=== PATIENT | female | born 1960 | race Caucasian/White ===

== ENCOUNTER 2016-12-03 14:41 | Emergency (ER) | payer OTHER ==
[2016-12-03 16:07] LABS: HEMOGLOBIN 12.8 gm/dl (12.3-15.3); RED BLOOD COUNT 4.45 M/UL (4.00-5.10); WHITE BLOOD COUNT 7.3 K/UL (4.5-11.0)
== END 2016-12-03 19:42 | disposition home or self-care (01) ==
LOC: ER1 14:41
PROVIDERS: Physician Assistant
DX: R10.9 Unspecified abdominal pain (principal); M54.5 Low back pain; G89.29 Other chronic pain; Z88.8 Allergy status to other drugs, medicaments and biological substances
CPT/HCPCS: 36415; 80053; 81001; 82150; 83690; 85025; 96374; 96375; 99284; J1885; J2270; J2405

== ENCOUNTER 2020-10-15 09:47 | Inpatient (IN) | payer OTHER ==
[~2020-10-15] VITALS: Ht 165.1 cm; Wt 104.3 kg
[~2020-10-15 09:47] MED LIST: AMBIEN10 MG PO; BUSPAR 10MG10 MG PO; CHLORTHALIDONE25 MG PO; ESCITALOPRAM OX20 MG PO; LIORESAL TAB 1010 MG PO; LISINOPRIL-HCT1 EAC1 PO; MOBIC15 MG PO; NEURONTIN 300300 MG PO; OMNICEF 300 MG300 MG PO; PEPCID20 MG PO; PREDNISONE 50 M50 MG PO; PYRIDIUM100 MG PO; REQUIP2 MG PO; TOPROL XL50 MG PO; Voltaren Gel 1 % TOP; ZESTRIL40 MG PO; ZOFRAN4 MG PO
[2020-10-15 10:19] LABS: HEMOGLOBIN 10.6 gm/dl (12.3-15.3); RED BLOOD COUNT 3.74 M/UL (4.00-5.10); WHITE BLOOD COUNT 5.8 K/UL (4.5-11.0)
[2020-10-15 10:56] LABS: BUN/CREATININE RATIO 11 (0-10)
[2020-10-16] MEDS ORDERED: FENOFIBRATE160 MG PO (02:51)
[2020-10-16 02:52] LABS: HEMOGLOBIN 9.9 gm/dl (12.3-15.3); RED BLOOD COUNT 3.56 M/UL (4.00-5.10); WHITE BLOOD COUNT 5.9 K/UL (4.5-11.0)
[2020-10-16] MEDS ORDERED: VISTARIL25 MG PO (02:52)
[2020-10-16] MEDS ORDERED: VIT-D PO (02:55)
[2020-10-16] MEDS ORDERED: LISINOPRIL10 MG PO (16:24)
[2020-10-16] MEDS ORDERED: NEURONTIN600 MG PO (16:24)
[2020-10-16] MEDS ORDERED: NORVASC5 MG PO (16:41)
[2020-10-18 05:08] LABS: CREATININE, URINE 131.3 mg/dL (Not Estab.)
== END 2020-10-16 18:05 | disposition home or self-care (01) | DRG 682 ==
LOC: ER1 09:47 → CDU 13:13 → M/S 14:54
PROVIDERS: Student in an Organized Health Care Education/Training Program; ADMIT Internal Medicine
PROC: B24BZZZ Ultrasonography of Heart with Aorta (ICD-10-PCS; principal; 2020-10-16)
DX: N17.9 Acute kidney failure, unspecified (principal); G93.41 Metabolic encephalopathy; M62.82 Rhabdomyolysis; Z20.822 Contact with and (suspected) exposure to COVID-19; I12.9 Hypertensive chronic kidney disease with stage 1 through stage 4 chronic kidney disease, or unspecified chronic kidney disease; K57.90 Diverticulosis of intestine, part unspecified, without perforation or abscess without bleeding; N18.30 Chronic kidney disease, stage 3 unspecified; D64.9 Anemia, unspecified; E78.5 Hyperlipidemia, unspecified; G25.3 Myoclonus; R91.1 Solitary pulmonary nodule; Z87.442 Personal history of urinary calculi; Z86.010 Personal history of colon polyps; Z90.710 Acquired absence of both cervix and uterus; Z87.891 Personal history of nicotine dependence; Z82.49 Family history of ischemic heart disease and other diseases of the circulatory system; Z80.1 Family history of malignant neoplasm of trachea, bronchus and lung; Z88.2 Allergy status to sulfonamides; Z79.899 Other long term (current) drug therapy
CPT/HCPCS: ECHO; 0240U; 36415; 36600; 70450; 71045; 80048; 80053; 80307; 81001; 82043; 82140; 82436; 82550; 82553; 82570; 82803; 83735; 83874; 83880; 84100; 84133; 84156; 84300; 84484; 84702; 85025; 85610; 85730; 93005; 93306; 99285; J7030; J7120; Q0177

== ENCOUNTER → 2020-10-21 | Outpatient (CLI) | payer OTHER ==
[~2020-10-21] MED LIST changes: +FENOFIBRATE160 MG PO; +LISINOPRIL10 MG PO; +NEURONTIN600 MG PO; +NORVASC5 MG PO; +VISTARIL25 MG PO; +VIT-D PO
== END ==
LOC: LAB 14:38
PROVIDERS: Internal Medicine
DX: N19 Unspecified kidney failure (principal)
CPT/HCPCS: 80048

== ENCOUNTER → 2020-12-28 | Outpatient (CLI) | payer OTHER ==
[2020-12-28 16:37] LABS: HEMOGLOBIN 12.5 gm/dl (12.3-15.3); RED BLOOD COUNT 4.48 M/UL (4.00-5.10); WHITE BLOOD COUNT 5.8 K/UL (4.5-11.0)
== END ==
LOC: LAB 14:38
PROVIDERS: Internal Medicine Nephrology
DX: N18.30 Chronic kidney disease, stage 3 unspecified (principal); E78.5 Hyperlipidemia, unspecified
CPT/HCPCS: 36415; 80053; 82550; 82570; 83970; 84100; 84156; 85025

== ENCOUNTER 2021-03-15 12:53 | Emergency (ER) | payer OTHER ==
[2021-03-15 13:21] LABS: HEMOGLOBIN 12.2 gm/dl (12.3-15.3); RED BLOOD COUNT 4.32 M/UL (4.00-5.10); WHITE BLOOD COUNT 4.2 K/UL (4.5-11.0)
[2021-03-15 13:51] LABS: BUN/CREATININE RATIO 15 (0-10)
== END 2021-03-15 15:34 | disposition home or self-care (01) ==
LOC: ER1 12:53
PROVIDERS: Physician Assistant
DX: R10.9 Unspecified abdominal pain (principal); Z90.710 Acquired absence of both cervix and uterus; Z88.1 Allergy status to other antibiotic agents
CPT/HCPCS: 80053; 81001; 85025; 87077; 87086; 87186; 99284

== ENCOUNTER → 2021-05-03 | Outpatient (CLI) | payer OTHER ==
[2021-05-03 13:47] LABS: BUN/CREATININE RATIO 13 (0-10)
== END ==
LOC: LAB 13:00
PROVIDERS: Internal Medicine Nephrology
DX: N18.30 Chronic kidney disease, stage 3 unspecified (principal)
CPT/HCPCS: 36415; 80053; 82570; 83735; 84156

== ENCOUNTER → 2021-05-10 | Outpatient (CLI) | payer OTHER | LOC: LAB 10:54 | DX: N39.0 Urinary tract infection, site not specified (principal) | CPT/HCPCS: 87086 ==

== ENCOUNTER 2021-07-05 11:15 | Emergency (ER) | payer OTHER ==
[2021-07-05] MEDS ORDERED: NORFLEX 100 MG100 MG PO (15:35)
[2021-07-05] MEDS ORDERED: NAPROXEN500 MG PO (15:35)
== END 2021-07-05 15:50 | disposition home or self-care (01) ==
LOC: ER1 11:15
DX: M54.2 Cervicalgia (principal); G89.29 Other chronic pain; I10 Essential (primary) hypertension; Z90.710 Acquired absence of both cervix and uterus; Z88.1 Allergy status to other antibiotic agents
CPT/HCPCS: 72125; 96372; 99283; J1885; J2270; J2930

== ENCOUNTER → 2021-08-28 | Outpatient (CLI) | payer OTHER ==
[~2021-08-28] MED LIST changes: +NAPROXEN500 MG PO; +NORFLEX 100 MG100 MG PO
== END ==
LOC: KOH-I 12:26
DX: J20.9 Acute bronchitis, unspecified (principal); R91.8 Other nonspecific abnormal finding of lung field
CPT/HCPCS: 71046

== ENCOUNTER → 2021-10-18 | Outpatient (CLI) | payer OTHER | LOC: KOH-I 13:45 | DX: N39.0 Urinary tract infection, site not specified (principal) | CPT/HCPCS: 76775 ==

== ENCOUNTER 2022-04-26 15:04 | Emergency (ER) | payer OTHER | END 2022-04-26 16:23 | disposition left against medical advice (07) | LOC: ER1 15:04 | DX: Z53.21 Procedure and treatment not carried out due to patient leaving prior to being seen by health care provider (principal) | CPT/HCPCS: 93005 ==